=== PATIENT | female | born 1990 | race African-American/Black ===

== ENCOUNTER 2016-10-16 11:44 | Emergency (ER) | payer MEDICAID ==
[~2016-10-16] VITALS: Ht 165.1 cm; Wt 79.4 kg
[~2016-10-16 11:44] MED LIST: BENADRYL25 MG ORAL; NKM; PEPCID20 MG ORAL; PRENATABS RX T1 EACH PO; REGLAN5 MG ORAL
[2016-10-16 11:59] VITALS: BP 131/81
--- NOTE | 2016-10-16 12:29 | Emergency Room Report ---
History of Present Illness General Chief Complaint: Sore Throat Source: Patient Present Illness HPI 26-year-old female presents emergency department complaining of 8/10 in severity sore throat x5 days patient denies fevers reports intermittent chills patient states she is taking throat lozenges which did not bite relief. Patient denies ill contacts or recent travel patient denies abdominal pain rashes, neck pain or stiffness, headaches, or difficulty breathing. She states pain is exacerbated upon swallowing and has been progressive over the course of 5 days. Denies CP, Palpitations, LOC, AMS, dizziness, Changes in Vision, Sensation, paresthesias, or a sudden severe headache. Allergies: Coded Allergies: No Known Allergies (Unverified , 05/12/13) Patient History Past Medical History: see triage record Past Surgical History: none Pertinent Family History: none Now: No Reviewed Nursing Documentation: PMH: Agreed, PSxH: Agreed Nursing Documentation-PMH Past Medical History: No Stated History Review of Systems All Other Systems: negative except mentioned in HPI Physical Exam Vital Signs Date Time Temp Pulse Resp B/P Pulse Ox O2 Delivery O2 Flow Rate FiO2 10/16/16 11:59 99.0 91 18 131/81 100 Sp02 EP Interpretation: reviewed, normal General Appearance: no apparent distress, alert, GCS 15, non-toxic Head: normocephalic, atraumatic Eyes: bilateral eye PERRL, bilateral eye normal inspection ENT: hearing grossly normal, normal pharynx, no angioedema, normal voice, TMs + canals normal, uvula midline, tonsillar swelling - left tonsillar swelling, no palpable fluctuance, pharyngeal erythema, tonsillar exudate Neck: full range of motion, supple/symm/no masses Respiratory: lungs clear, normal breath sounds, speaking full sentences Cardiovascular #1: regular rate, rhythm, no edema Rectal: deferred Genitourinary: normal inspection, no CVA tenderness Musculoskeletal: back normal, gait/station normal, normal range of motion, non- tender Neurologic: alert, oriented x3, responsive, motor strength/tone normal, sensory intact, speech normal Psychiatric: judgement/insight normal, memory normal, mood/affect normal Skin: normal color, no rash, warm/dry, well hydrated Lymphatic: other - anterior cervical LAD bilateral Medical Decision Making PA Attestation Dr. Coy is my supervising Physician whom patient management has been discussed with. Diagnostic Impression: Primary Impression: Pharyngitis, acute Qualified Codes: J02.0 - Streptococcal pharyngitis ER Course 26-year-old female presents emergency department complaining of 8/10 in severity sore throat x5 days patient denies fevers reports intermittent chills patient states she is taking throat lozenges which did not bite relief. Patient denies ill contacts or recent travel patient denies abdominal pain rashes, neck pain or stiffness, headaches, or difficulty breathing. She states pain is exacerbated upon swallowing and has been progressive over the course of 5 days. Ddx considered but are not limited to: pharyngitis, strep, INFECTION CONTROL RN, ludwigs angina, URI Vital signs: are WNL, pt. is afebrile H&PE are most consistent with: pharyngitis presumed strep, suspicious for early INFECTION CONTROL RN due to unilateral tonsillar swelling. will treat prophylactically ORDERS: None required at this time as the diagnosis is clinical ED INTERVENTIONS: -8mg Decadron IM - Augmentin 875 PO -Tylenol PO - Pt is given strict follow up precautions to follow up with-in 48 hours with PCP to assess improvement, and to return to the ED with worsening or new symptoms. DISCHARGE: At this time pt. is stable for d/c to home. Will provide printed patient care instructions, and any necessary prescriptions. Care plan and follow up instructions have been discussed with the patient prior to discharge. Last Vital Signs Date Time Temp Pulse Resp B/P Pulse Ox O2 Delivery O2 Flow Rate FiO2 10/16/16 11:59 99.0 91 18 131/81 100 Disposition: HOME, SELF-CARE Condition: Stable Scripts Ibuprofen* (MOTRIN*) 400 Mg Tablet 400 MG ORAL THREE TIMES A DAY for 10 Days, #30 TAB 0 Refills Prov: Cindi Vega P.A. 10/16/16 Lidocaine HCl (Lidocaine HCl Viscous) 100 Ml Solution 15 ML PO QID for For Pain, #120 ML Prov: Cindi Vega P.AFransisca 10/16/16 Amoxicillin/Potassium Clav 875-125* (AUGMENTIN 875-125 TABLET*) 1 Each Tablet 1 TAB ORAL TWICE A DAY for 10 Days, #20 TAB Prov: Cindi Vega P.A. 10/16/16 Referrals: NOT CHOSEN [facility]/MD,REFERRING (PCP) Patient Instructions: Strep Throat, Tonsillitis Additional Instructions: Take medications as directed. Follow up with PCP in 48 HOURS Return sooner to ED if new symptoms occur, or current symptoms become worse. - Please note that this Emergency Department Report was dictated using [employer] maker technology software, occasionally this can lead to erroneous entry secondary to interpretation by the dictation equipment. Cindi Vega. Oct 16, 2016 12:29
[2016-10-16] MEDS ORDERED: Dexamethasone 4mg/ml vial IM ONE (12:30)
[2016-10-16] MEDS ORDERED: Augmentin 875mg Tab ORAL ONE (12:45)
[2016-10-16] MEDS ORDERED: IBUPROFEN400 MG ORAL (12:47)
[2016-10-16] MEDS ORDERED: LIDOCAINE VISCO20 ML PO (12:47)
[2016-10-16] MEDS ORDERED: AUGMENTIN 875-1 EAC1 ORAL (12:47)
[2016-10-16 13:21] VITALS: BP 131/81
== END 2016-10-16 13:23 | disposition home or self-care (01) ==
LOC: EMR 12:19
DX: J02.9 Acute pharyngitis, unspecified (principal)
CPT/HCPCS: 96372; 99284; J1100

== ENCOUNTER 2016-11-04 16:42 | Emergency (ER) | payer MEDICAID ==
[~2016-11-04] VITALS: Ht 165.1 cm; Wt 85.7 kg
[~2016-11-04 16:42] MED LIST changes: +AUGMENTIN 875-1 EAC1 ORAL; +IBUPROFEN400 MG ORAL; +LIDOCAINE VISCO20 ML PO
[2016-11-04] MEDS ORDERED: IBUPROFEN600 MG ORAL (17:12)
[2016-11-04 17:19] VITALS: BP 132/71
[2016-11-04] MEDS ORDERED: OMEPRAZOLE20 M2 ORAL (17:25)
[2016-11-04] MEDS ORDERED: AMOXICILLIN500 MG ORAL (17:25)
[2016-11-04] MEDS ORDERED: PREDNISONE20 MG ORAL (17:25)
[2016-11-04] MEDS ORDERED: PredniSONE 20mg tab ORAL ONE (17:30)
[2016-11-04 17:34] VITALS: BP 132/71
--- NOTE | 2016-11-04 21:25 | Emergency Room Report ---
History of Present Illness General Chief Complaint: Flu Like Symptoms Source: Patient Present Illness HPI The patient is a 26-year-old female presenting with sore throat, cough, and abdominal pain. The sore throat began 5 days prior. It is described as needed 10 dull ache to the back of the throat and is worse with swallowing. Does not radiate. She denies any recent travel or sick contacts. She does admit to subjective fever and chills. Abdominal pain described as 5/10 burning after eating only. Mid upper abdomen and chest. She denies any other symptoms such as N, V, neck pain/stiffness, rash, dysuria Allergies: Coded Allergies: No Known Allergies (Unverified , 05/12/13) Patient History Past Medical History: see triage record Pertinent Family History: none Last Menstrual Period: 2 months ago - implant contraceptive Now: No Reviewed Nursing Documentation: PMH: Agreed, PSxH: Agreed Nursing Documentation-PMH Past Medical History: No Stated History Review of Systems All Other Systems: negative except mentioned in HPI Physical Exam Vital Signs Date Time Temp Pulse Resp B/P Pulse Ox O2 Delivery O2 Flow Rate FiO2 11/04/16 16:54 100.2 103 16 135/75 99 Room Air Sp02 EP Interpretation: reviewed, normal General Appearance: no apparent distress, alert, GCS 15, non-toxic Head: normocephalic, atraumatic Eyes: bilateral eye PERRL, bilateral eye normal inspection ENT: hearing grossly normal, no angioedema, normal voice, uvula midline, tonsillar swelling, pharyngeal erythema, tonsillar exudate Neck: full range of motion, supple/symm/no masses Respiratory: chest non-tender, lungs clear, normal breath sounds, speaking full sentences Cardiovascular #1: regular rate, rhythm, no edema Gastrointestinal: normal inspection, soft, non-distended, no guarding, tenderness - epigastric Genitourinary: normal inspection, no CVA tenderness Musculoskeletal: back normal, gait/station normal, normal range of motion, non- tender Neurologic: alert, oriented x3, responsive, motor strength/tone normal, sensory intact, speech normal Psychiatric: judgement/insight normal, memory normal, mood/affect normal, no suicidal/homicidal ideation Skin: normal color, no rash, warm/dry, well hydrated Medical Decision Making PA Attestation Dr. Sandoval is my supervising physician. Patient management was discussed with my supervising physician Diagnostic Impression: Primary Impression: Pharyngitis, acute Qualified Codes: J02.9 - Acute pharyngitis, unspecified Additional Impression: GERD (gastroesophageal reflux disease) Qualified Codes: K21.9 - Gastro-esophageal reflux disease without esophagitis ER Course The patient is a 26-year-old female presenting with sore throat, cough, and abdominal pain Differential diagnosis include but not limited to pharyngitis, sinusitis, AOM, bronchitis, PNA Differential diagnoses considered but not limited to: Gastroenteritis, gastritis , GERD, pancreatitis, appendicitis Physical exam:Pt is febrile. No apparent distress HEENT exam: There is bilateral tonsillar edema, erythema, and exudate. Uvula midline. Moist mucous membranes. There is bilateral cervical lymphadenopathy. Lungs are clear to auscultation bilaterally Skin is warm and dry. No rash Abdomen is tender over the epigastric region only. She is given prednisone and motrin in the ER. The patient will be discharged home with a prescription for omeprazole, steroids , amoxicillin, and is given ER precautions. Patient will followup with primary care Last Vital Signs Date Time Temp Pulse Resp B/P Pulse Ox O2 Delivery O2 Flow Rate FiO2 11/04/16 17:34 99.9 97 15 132/71 99 Room Air Status: improved Disposition: HOME, SELF-CARE Condition: Improved Scripts Omeprazole (OMEPRAZOLE) 20 Mg Capsule. 20 MG ORAL DAILY, #30 CAP Prov: ELIZABETH CHAIDEZ.A. 11/04/16 Amoxicillin* (AMOXIL*) 500 Mg Capsule 500 MG ORAL Q12HR, #20 CAP Prov: ELIZABETH CHAIDEZ P.A. 11/04/16 Prednisone* (PREDNISONE*) 20 Mg Tablet 40 MG ORAL DAILY, #10 TAB Prov: ELIZABETH CHAIDEZ P.A. 11/04/16 Patient Instructions: Pharyngitis, Indigestion Additional Instructions: I discussed my findings with the patient. All questions and concerns have been answered. Treatment and medication compliance have been addressed. I advised the patient that they need to follow up with PMD in 3-5 days. Return to ED if pain remains or worsens, numbness or tingling occurs, new rash is noticed, fever is noticed, or if needed for any reason. Patient verbalized understanding of discharge instructions. ELIZABETH CHAIDEZ Nov 04, 2016 21:25
== END 2016-11-04 17:34 | disposition home or self-care (01) ==
LOC: EMR 17:15
DX: J02.9 Acute pharyngitis, unspecified (principal); K21.9 Gastro-esophageal reflux disease without esophagitis
CPT/HCPCS: 99284

== ENCOUNTER 2017-10-26 10:47 | Emergency (ER) | payer MEDICAID ==
[~2017-10-26] VITALS: Ht 165.1 cm; Wt 90.7 kg
[~2017-10-26 10:47] MED LIST changes: +AMOXICILLIN500 MG ORAL; +IBUPROFEN600 MG ORAL; +OMEPRAZOLE20 M2 ORAL; +PREDNISONE20 MG ORAL
[2017-10-26 10:59] VITALS: BP 135/72
[2017-10-26] MEDS ORDERED: DiphenhydrAMINE 50mg/ml Inj IVP ONE (11:15)
[2017-10-26] MEDS ORDERED: Metoclopramide 10mg/2ml Inj IVP ONE (11:15)
[2017-10-26 11:23] LABS: BASOPHILS % (AUTO) 1.8 % (0.0-2.0); EOSINOPHILS % (AUTO) 3.5 % (0.0-3.0); HEMOGLOBIN 14.8 G/DL (12.0-16.0); LYMPHOCYTES % (AUTO) 32.2 % (20.0-45.0); MEAN CORPUSCULAR VOLUME 87 FL (80-99); MONOCYTES % (AUTO) 8.9 % (1.0-10.0); NEUTROPHILS % (AUTO) 53.7 % (45.0-75.0); PLATELET COUNT 296 K/UL (150-450); RED BLOOD COUNT 5.16 M/UL (4.20-5.40); RED CELL DISTRIBUTION WIDTH 11.3 % (11.6-14.8); WHITE BLOOD COUNT 10.5 K/UL (4.8-10.8)
--- NOTE | 2017-10-26 11:44 | Emergency Room Report ---
History of Present Illness General Chief Complaint: Vomiting Source: Patient Present Illness HPI Patient presents with vomiting that started this morning. She's not sure if she ate something unusual. She denies any diarrhea. She can't keep anything down. She has some discomfort in her stomach and also in her throat from retching. She's not noticed any blood or taste any metallic flavor. She denies any fevers or chills. Her last period was September 26. She alleges to be on control. She's not sure if she is at this time as her period is late. She denies any dysuria. She's never had this problem before. In past, had h/o GERD. No headache, dizziness, weakness, cough, sore throat, rashes. She does have some stress at work. 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 [employer] Last Menstrual Period: 09/26/17 Reviewed Nursing Documentation: PMH: Agreed; PSxH: Agreed Nursing Documentation-PMH Past Medical History: No Stated History Review of Systems All Other Systems: negative except mentioned in HPI Physical Exam Vital Signs Date Time Temp Pulse Resp B/P (MAP) Pulse Ox O2 Delivery O2 Flow Rate FiO2 10/26/17 10:49 98.1 92 18 112/63 99 Room Air 98.1 Sp02 EP Interpretation: reviewed, normal General Appearance: well appearing, no apparent distress, GCS 15 Head: normocephalic Eyes: bilateral eye normal inspection, bilateral eye PERRL ENT: moist mucus membranes Neck: supple Respiratory: lungs clear, normal breath sounds Cardiovascular #1: regular rate, rhythm Cardiovascular #2: 2+ radial (R) Gastrointestinal: normal inspection, normal bowel sounds, non tender, no mass, non-distended, overweight Musculoskeletal: back normal, gait/station normal, normal range of motion Neurologic: alert, oriented x3, grossly normal Psychiatric: mood/affect normal Skin: normal inspection, warm/dry Medical Decision Making Diagnostic Impression: Primary Impression: Nausea & vomiting Qualified Codes: R11.2 - Nausea with vomiting, unspecified ER Course Patient presents with vomiting. Differential includes food poisoning, gastroenteritis, GERD, gastritis amongst others. She denies any specific pain aside from with the vomiting episodes. Evaluation will be with labs including test. The patient retreated with IV hydration, Reglan, Benadryl and Pepcid. Labs basically normal. (sodium 134, K 3.4, glu 118) The patient is improved with IV hydration, Reglan and Benadryl and Pepcid. She is tolerating oral intake right now. Her abdomen is benign. The patient is stable for outpatient observation and treatment. Laboratory Tests Test 10/26/17 11:10 10/26/17 11:30 White Blood Count 10.5 K/UL (4.8-10.8) Red Blood Count 5.16 M/UL (4.20-5.40) Hemoglobin 14.8 G/DL (12.0-16.0) Hematocrit 45.0 % (37.0-47.0) Mean Corpuscular Volume 87 FL (80-99) Mean Corpuscular Hemoglobin 28.7 PG (27.0-31.0) Mean Corpuscular Hemoglobin Concent 32.9 G/DL (32.0-36.0) Red Cell Distribution Width 11.3 % (11.6-14.8) L Platelet Count 296 K/UL (150-450) Mean Platelet Volume 8.6 FL (6.5-10.1) Neutrophils (%) (Auto) 53.7 % (45.0-75.0) Lymphocytes (%) (Auto) 32.2 % (20.0-45.0) Monocytes (%) (Auto) 8.9 % (1.0-10.0) Eosinophils (%) (Auto) 3.5 % (0.0-3.0) H Basophils (%) (Auto) 1.8 % (0.0-2.0) Sodium Level 135 MMOL/L (136-145) L Potassium Level 3.4 MMOL/L (3.5-5.1) L Chloride Level 102 MMOL/L (98-107) Carbon Dioxide Level 20 MMOL/L (21-32) L Anion Gap 13 mmol/L (5-15) Blood Urea Nitrogen 16 mg/dL (7-18) Creatinine 0.8 MG/DL (0.55-1.30) Estimate Glomerular Filtration Rate > 60 mL/min (>60) Glucose Level 118 MG/DL (74-106) H Calcium Level 9.1 MG/DL (8.5-10.1) Total Bilirubin 0.3 MG/DL (0.2-1.0) Aspartate Amino Transferase (AST) 18 U/L (15-37) Alanine Aminotransferase (ALT) 29 U/L (12-78) Alkaline Phosphatase 74 U/L (46-116) Total Protein 8.0 G/DL (6.4-8.2) Albumin 4.0 G/DL (3.4-5.0) Globulin 4.0 g/dL Albumin/Globulin Ratio 1.0 (1.0-2.7) Lipase 139 U/L (73-393) Human Chorionic Gonadotropin, Qual Negative Urine Color Yellow Urine Appearance Clear Urine pH 8 (4.5-8.0) Urine Specific [place] 1.015 (1.005-1.035) Urine Protein Negative (NEGATIVE) Urine Glucose (UA) Negative (NEGATIVE) Urine Ketones 2+ (NEGATIVE) H Urine Occult Blood 2+ (NEGATIVE) H Urine Nitrite Negative (NEGATIVE) Urine Bilirubin Negative (NEGATIVE) Urine Urobilinogen Normal MG/DL (0.0-1.0) Urine Leukocyte Esterase 1+ (NEGATIVE) H Urine RBC 2-4 /HPF (0 - 2) H Urine WBC 0-2 /HPF (0 - 2) Urine Squamous Epithelial Cells Few /LPF (NONE/OCC) Urine Bacteria Few /HPF (NONE) Last Vital Signs Date Time Temp Pulse Resp B/P (MAP) Pulse Ox O2 Delivery O2 Flow Rate FiO2 10/26/17 12:55 68 17 128/72 100 Room Air 10/26/17 12:54 98.1 98.1 Status: improved Disposition: HOME, SELF-CARE Condition: Improved Scripts Famotidine (PEPCID AC) 20 Mg Tablet 20 MG PO DAILY, #10 TAB Prov: Evan Suazo M.D. 10/26/17 Ondansetron Odt* (ZOFRAN ODT*) 4 Mg Tab.rapdis 4 MG BC EVERY 8 HOURS, #6 TAB 0 Refills Prov: Evan Suazo M.D. 10/26/17 Evan Suazo M.D. Oct 26, 2017 11:44
[2017-10-26 11:54] LABS: ANION GAP 13 mmol/L (5-15); BLOOD UREA NITROGEN 16 mg/dL (7-18); CALCIUM 9.1 MG/DL (8.5-10.1); CARBON DIOXIDE 20 MMOL/L (21-32); CHLORIDE 102 MMOL/L (98-107); CREATININE 0.8 MG/DL (0.55-1.30); POTASSIUM 3.4 MMOL/L (3.5-5.1); SODIUM 135 MMOL/L (136-145)
[2017-10-26 12:01] LABS: ALANINE AMINOTRANSFERASE 29 U/L (12-78); ALKALINE PHOSPHATASE 74 U/L (46-116); ASPARTATE AMINO TRANSFERASE 18 U/L (15-37); BILIRUBIN,TOTAL 0.3 MG/DL (0.2-1.0)
[2017-10-26 12:01] LABS: APPEARANCE,URINE CLEAR; BILIRUBIN, URINE NEGATIVE (NEGATIVE); GLUCOSE, URINE (UA) NEGATIVE (NEGATIVE); KETONES,URINE 2+ (NEGATIVE); LEUKOCYTE ESTERASE ,URINE 1+ (NEGATIVE); NITRITE,URINE NEGATIVE (NEGATIVE); PH,URINE 8 (4.5-8.0); PROTEIN,URINE NEGATIVE (NEGATIVE); UROBILINOGEN,URINE NORMAL MG/DL (0.0-1.0)
[2017-10-26 12:16] LABS: COLOR,URINE YELLOW
[2017-10-26] MEDS ORDERED: PEPCID AC20 M2 PO (12:38)
[2017-10-26] MEDS ORDERED: ONDANSETRON ODT4 MG BC (12:38)
[2017-10-26 12:55] VITALS: BP 128/72
== END 2017-10-26 12:54 | disposition home or self-care (01) ==
LOC: EMR 11:20
DX: R11.2 Nausea with vomiting, unspecified (principal); K21.9 Gastro-esophageal reflux disease without esophagitis
CPT/HCPCS: 36415; 80053; 81003; 83690; 84703; 85025; 96360; 96374; 96375; 99284; J1200; J2765; S0028

== ENCOUNTER 2019-01-03 11:37 | Emergency (ER) | payer BC, MEDICAID ==
[~2019-01-03] VITALS: Ht 165.1 cm; Wt 98.9 kg
[~2019-01-03 11:37] MED LIST changes: +ONDANSETRON ODT4 MG BC; +PEPCID AC20 M2 PO
[2019-01-03 11:41] VITALS: BP 141/83
--- NOTE | 2019-01-03 11:50 | NUR ---
ED Nurse Note: Pt walked in due to on and off headache x 3 days. Vomited once last friday. Denies head injury. AAO x4 and ambulates with steady gait.
--- NOTE | 2019-01-03 12:12 | Emergency Room Report ---
History of Present Illness General Chief Complaint: Headache Source: Patient Present Illness HPI Patient is a 28-year-old female presenting for headache. She does admit to a history of headaches and this feels similar. Pain is described as a 7 out of 10 dull ache to the left side of the head and does not radiate. Worse with movement. She has tried several days of Tylenol which has only mildly helped. Does admit to nausea 2 days prior denies vomiting. Last normal menstrual period was 12/30/18. She admits to recently stopping control She denies visual changes, Vomiting, neck pain or stiffness, fever, chills Allergies: Coded Allergies: No Known Allergies (Unverified , 05/12/13) Patient History Past Medical History: see triage record Past Surgical History: other Last Menstrual Period: 12/30/2018 Now: No Reviewed Nursing Documentation: PMH: Agreed; PSxH: Agreed Nursing Documentation-PMH Past Medical History: No Stated History Review of Systems All Other Systems: negative except mentioned in HPI Physical Exam Vital Signs Date Time Temp Pulse Resp B/P (MAP) Pulse Ox O2 Delivery O2 Flow Rate FiO2 01/03/19 11:41 98.4 81 20 141/83 (102) 98 Room Air Sp02 EP Interpretation: reviewed, normal General Appearance: no apparent distress, alert, GCS 15, non-toxic Head: normocephalic, atraumatic Eyes: bilateral eye normal inspection, bilateral eye PERRL Neck: full range of motion, supple, supple/symm/no masses Respiratory: chest non-tender, lungs clear, normal breath sounds, speaking full sentences Cardiovascular #1: regular rate, rhythm, no edema Genitourinary: normal inspection, no CVA tenderness Musculoskeletal: back normal, gait/station normal, normal range of motion, non- tender Neurologic: alert, oriented x3, responsive, motor strength/tone normal, sensory intact, speech normal Psychiatric: normal inspection, mood/affect normal Medical Decision Making PA Attestation Dr. Adler is my supervising physician. Patient management was discussed with my supervising physician Diagnostic Impression: Primary Impression: Headache Qualified Codes: R51 - Headache ER Course Patient is a 28-year-old female presenting for headache Differential diagnoses include but not limited to Migraine, tension headache, cluster MOONEY, dehydration, anxiety, meningitis, among others Vitals: afebrile. Stable NAD Head NC/AT. PERRL. EOMI. Neck soft and supple. RRR Lungs CTA bilat Patient is given IM Toradol, Benadryl, and Reglan. She states that she is feeling significantly better and would like to be discharged home. She was told to follow-up with primary doctor as soon as possible. ER precautions are given Laboratory Tests Test 01/03/19 12:15 Urine Color Pale yellow Urine Appearance Clear Urine pH 8 (4.5-8.0) Urine Specific [place] 1.010 (1.005-1.035) Urine Protein Negative (NEGATIVE) Urine Glucose (UA) Negative (NEGATIVE) Urine Ketones Negative (NEGATIVE) Urine Blood 2+ (NEGATIVE) H Urine Nitrite Negative (NEGATIVE) Urine Bilirubin Negative (NEGATIVE) Urine Urobilinogen Normal MG/DL (0.0-1.0) Urine Leukocyte Esterase 1+ (NEGATIVE) H Urine RBC 2-4 /HPF (0 - 2) H Urine WBC 2-4 /HPF (0 - 2) Urine Squamous Epithelial Cells Moderate /LPF (NONE/OCC) H Urine Bacteria Few /HPF (NONE) Urine HCG, Qualitative Negative (NEGATIVE) Lab Results Impression UA unremarkable. UP negative Last Vital Signs Date Time Temp Pulse Resp B/P (MAP) Pulse Ox O2 Delivery O2 Flow Rate FiO2 01/03/19 11:41 98.4 81 20 141/83 (102) 98 Room Air Status: improved Disposition: HOME, SELF-CARE Condition: Improved Scripts Metoclopramide Hcl* (REGLAN*) 10 Mg Tablet 10 MG ORAL THREE TIMES A DAY, #15 TAB Prov: TERANGELIANEILEENY P.A. 01/03/19 Diphenhydramine Hcl* (BENADRYL*) 25 Mg Capsule 25 MG ORAL Q6H PRN for For Pain, #15 CAP Prov: TERZIAN,ELIZABETH P.A. 01/03/19 Ibuprofen* (MOTRIN*) 600 Mg Tablet 600 MG ORAL Q8H PRN for For Pain, #30 TAB 0 Refills Prov: TERANGELIANELIZABETH P.A. 01/03/19 Referrals: NOT CHOSEN MICHI/,REFERRING (PCP) ELIZABETH CHAIDEZ.AFransisca Jan 03, 2019 12:12
[2019-01-03 12:36] LABS: APPEARANCE,URINE CLEAR; BILIRUBIN, URINE NEGATIVE (NEGATIVE); COLOR,URINE PALE YELLOW; GLUCOSE, URINE (UA) NEGATIVE (NEGATIVE); KETONES,URINE NEGATIVE (NEGATIVE); LEUKOCYTE ESTERASE ,URINE 1+ (NEGATIVE); NITRITE,URINE NEGATIVE (NEGATIVE); PH,URINE 8 (4.5-8.0); PROTEIN,URINE NEGATIVE (NEGATIVE); UROBILINOGEN,URINE NORMAL MG/DL (0.0-1.0)
[2019-01-03] MEDS ORDERED: Ketorolac 60mg Inj IM ONE (12:45)
[2019-01-03] MEDS ORDERED: DiphenhydrAMINE 50mg/ml Inj IM ONE (12:45)
[2019-01-03] MEDS ORDERED: Metoclopramide 10mg/2ml Inj IM ONE (12:45)
[2019-01-03] MEDS ORDERED: IBUPROFEN600 MG ORAL (13:22)
[2019-01-03] MEDS ORDERED: REGLAN10 MG ORAL (13:22)
[2019-01-03] MEDS ORDERED: BENADRYL25 MG ORAL (13:22)
[2019-01-03 13:26] VITALS: BP 138/76
--- NOTE | 2019-01-03 13:26 | NUR ---
ER DISCHARGE NOTE: Patient is cleared to be discharged per PA, pt is aox4, on room air, with stable vital signs. pt was given dc and prescription instructions, pt was able to verbalize understanding, pt id band removed. pt is able to ambulate with steady gait. pt took all belongings.
== END 2019-01-03 13:26 | disposition home or self-care (01) ==
LOC: EMR 12:07
DX: R51 Headache (principal); R11.0 Nausea
CPT/HCPCS: 81003; 81025; 96372; 99283; J1200; J2765

== ENCOUNTER 2019-03-12 13:02 | Emergency (ER) | payer BC, MEDICAID ==
[~2019-03-12] VITALS: Ht 165.1 cm; Wt 98.9 kg
[~2019-03-12 13:02] MED LIST changes: +REGLAN10 MG ORAL
[2019-03-12] MEDS ORDERED: IMITREX50 MG ORAL (13:11)
[2019-03-12 13:13] VITALS: BP 144/87
--- NOTE | 2019-03-12 13:15 | NUR ---
ED Nurse Note: Pt walked in to ER from home due to headache 11/04 for a week. pt aao x4 and ambulatory. skin clean and intact. calm and cooperative. no acute distress noted at this moment.
[2019-03-12 13:43] LABS: APPEARANCE,URINE CLEAR; BILIRUBIN, URINE NEGATIVE (NEGATIVE); COLOR,URINE PALE YELLOW; GLUCOSE, URINE (UA) NEGATIVE (NEGATIVE); KETONES,URINE NEGATIVE (NEGATIVE); LEUKOCYTE ESTERASE ,URINE 1+ (NEGATIVE); NITRITE,URINE NEGATIVE (NEGATIVE); PH,URINE 7 (4.5-8.0); PROTEIN,URINE NEGATIVE (NEGATIVE); UROBILINOGEN,URINE NORMAL MG/DL (0.0-1.0)
--- NOTE | 2019-03-12 14:13 | Emergency Room Report ---
History of Present Illness General Chief Complaint: Headache Source: Patient Present Illness HPI 28-year-old female with no significant past medical history here complaining of 1 week of frontal headache and feeling pressure behind her eyes as well as pain radiation to her neck and her right shoulder. Patient denies any fall or injury. Denies nausea and vomiting at this time. Patient has been at [facility], [place] with similar symptoms before and has been diagnosed with tension type headache. Patient went to her primary care physician few days ago and was prescribed sumatriptan for possible migraine headache however reports that sumatriptan is not helping. Patient reports that she is under a lot of anxiety. Denies suicidal homicidal ideation. Denies chest pain, shortness of breath, blurry vision, palpitation, and other associated symptoms. Denies wearing glasses or contact lenses. Also complains of several months of cramping in the pelvic area especially in the right side upon getting her. Patient denies any pain in that area right now. Denies urinary frequency and urgency. Reports that she is trying to get . Has not taken any medication for symptom relief. Patient sitting comfortably with stable vital signs. No motor or neurological or sensory deficits noted. Patient speaking in full sentences. Denies neck stiffness, photophobia, and fever. Denies recent URI symptoms. Last menstrual period was 1 week ago and regular. Allergies: Coded Allergies: No Known Allergies (Unverified , 05/12/13) Patient History Past Medical History: see triage record Past Surgical History: unable to obtain Pertinent Family History: none Last Menstrual Period: 03/04/19 Now: No Immunizations: UTD Reviewed Nursing Documentation: PMH: Agreed; PSxH: Agreed Nursing Documentation-PMH Past Medical History: No Stated History Review of Systems All Other Systems: negative except mentioned in HPI Physical Exam Vital Signs Date Time Temp Pulse Resp B/P (MAP) Pulse Ox O2 Delivery O2 Flow Rate FiO2 03/12/19 13:07 98.8 73 14 144/87 (106) 98 Room Air Sp02 EP Interpretation: reviewed, normal General Appearance: no apparent distress, alert, GCS 15, non-toxic Head: normocephalic, atraumatic Eyes: bilateral eye normal inspection, bilateral eye PERRL, bilateral eye other - 20/30 vision both eyes ENT: normal ENT inspection, hearing grossly normal, normal pharynx, no angioedema, normal voice, TMs + canals normal, uvula midline, moist mucus membranes, dry mucus membranes, nasal congestion Neck: normal inspection, full range of motion, supple, thyroid normal, no meningismus, no bony tend Respiratory: chest non-tender, lungs clear, normal breath sounds, no rhonchi, no respiratory distress, no retraction, no accessory muscle use, no wheezing, speaking full sentences Cardiovascular #1: normal inspection, normal peripheral pulses, regular rate, rhythm, no edema, no gallop, no JVD, no murmur, normal capillary refill Cardiovascular #2: 2+ carotid (R), 2+ carotid (L), 2+ radial (R), 2+ radial (L) Gastrointestinal: normal bowel sounds, non tender, soft, non-distended, no guarding, no rebound Rectal: deferred Genitourinary: no CVA tenderness Musculoskeletal: back normal, gait/station normal, normal range of motion, non- tender Neurologic: alert, oriented x3, responsive, motor strength/tone normal, sensory intact, speech normal Psychiatric: judgement/insight normal, memory normal, mood/affect normal, no suicidal/homicidal ideation Skin: no rash Lymphatic: normal inspection, no adenopathy Medical Decision Making PA Attestation All my diagnosis and treatment plans were reviewed ad discussed with my supervising physician Dr. Sandoval Diagnostic Impression: Primary Impression: Tension headache Additional Impression: Pelvic pain ER Course 28-year-old female with no significant past medical history here complaining of 1 week of frontal headache and feeling pressure behind her eyes as well as pain radiation to her neck and her right shoulder. Patient denies any fall or injury. Denies nausea and vomiting at this time. Patient has been at [facility] [place] with similar symptoms before and has been diagnosed with tension type headache. Patient went to her primary care physician few days ago and was prescribed sumatriptan for possible migraine headache however reports that sumatriptan is not helping. Patient reports that she is under a lot of anxiety. Denies suicidal homicidal ideation. Denies chest pain, shortness of breath, blurry vision, palpitation, and other associated symptoms. Denies wearing glasses or contact lenses. Also complains of several months of cramping in the pelvic area especially in the right side upon getting her. Patient denies any pain in that area right now. Denies urinary frequency and urgency. Reports that she is trying to get . Has not taken any medication for symptom relief. Patient sitting comfortably with stable vital signs. No motor or neurological or sensory deficits noted. Patient speaking in full sentences. Denies neck stiffness, photophobia, and fever. Denies recent URI symptoms. Last menstrual period was 1 week ago and regular. Ddx considered but are not limited to: Migraine headache with aura, migraine headache without aura, tension headache, cluster headache, TBI, subarachnoid hemorrhage Vital signs: are WNL, pt. is afebrile H&PE are most consistent with: Tension type headache, pelvic pain ORDERS: UA, urine test, Excedrin, Zofran, Benadryl ER intervention: None DISCHARGE: At this time pt. is stable for d/c to home. Will provide printed patient care instructions, and any necessary prescriptions. Care plan and follow up instructions have been discussed with the patient prior to discharge. Follow-up with primary care provider for referral to pharmaceutical operator for possibility of ovarian cyst versus fibroids since he did not have any pain at this time and monitor actively bleeding no further imaging is needed. Also have your primary care physician send you to neurologist to have further investigation of the recurrent headaches. If worsening symptoms return to emergency room. Last Vital Signs Date Time Temp Pulse Resp B/P (MAP) Pulse Ox O2 Delivery O2 Flow Rate FiO2 03/12/19 13:13 98.8 88 14 144/87 98 Room Air Disposition: HOME, SELF-CARE Condition: Stable Scripts Diphenhydramine HCl (Benadryl) 25 Mg Capsule 25 MG PO BID, #20 CAP Prov: Elise Franz 03/12/19 Ondansetron (Zofran) 4 Mg Tablet 4 MG ORAL Q6H PRN for Nausea & Vomiting, #10 TAB Prov: Elise Franz 03/12/19 Aspirin/Acetaminophen/Caffeine (EXCEDRIN EXTRA STRENGTH CAPLET) 1 Each Tablet 1 EACH PO BID, #20 TAB Prov: Elise Franz 03/12/19 Patient Instructions: Pelvic Pain, Female, [id number], Tension Headache Additional Instructions: take medication as directed. see primary dr for assessment of headache, and also ultrasound of pelvis to rule out fibroids/ovarian cysts. at this time you are asymptomatic, return to ER if worsening symptoms. Elise Franz Mar 12, 2019 14:13
[2019-03-12] MEDS ORDERED: BENADRYL25 M3 PO (14:14)
[2019-03-12] MEDS ORDERED: ZOFRAN4 M1 ORAL (14:14)
[2019-03-12] MEDS ORDERED: EXCEDRIN EXTRA1 EAC1 PO (14:14)
[2019-03-12 14:37] VITALS: BP 122/87
== END 2019-03-12 14:38 | disposition home or self-care (01) ==
LOC: EMR 14:15
DX: G44.209 Tension-type headache, unspecified, not intractable (principal); R10.2 Pelvic and perineal pain
CPT/HCPCS: 81001; 81025; 99283

== ENCOUNTER 2019-08-29 21:27 | Emergency (ER) | payer BC, MEDICAID ==
[~2019-08-29] VITALS: Ht 162.6 cm; Wt 93.4 kg
[2019-08-29 21:22] VITALS: BP 135/76
--- NOTE | 2019-08-29 21:22 | NUR ---
ED Nurse Note: pt walked in to ED for C/O sore throat since last night. denies any cough. pt also C/O pain to vaginal and pubic bone area. reports bleeding after intercourse
[~2019-08-29 21:27] MED LIST changes: +BENADRYL25 M3 PO; +EXCEDRIN EXTRA1 EAC1 PO; +IMITREX50 MG ORAL; +ZOFRAN4 M1 ORAL
--- NOTE | 2019-08-29 22:02 | NUR ---
ED Nurse Note: Report given to Isidra Núñez RN. endorsed plan of care.
--- NOTE | 2019-08-29 22:10 | NUR ---
ED Nurse Note: RECIEVED PT FROM OUTSIDE TO RESUME CARE, PT HERE FOR VAGINAL EXAM AND SORE THROAT, PT IS AWAKE AND ALERT, AMBULATORY, URINE SAMPLE COLLECTED, WILL RESUME CARE ORDERED AND CLOSELY MONITOR FOR ANY CHANGES OR INCREASED DISTRESS.
[2019-08-29 22:38] LABS: APPEARANCE,URINE CLEAR; BILIRUBIN, URINE NEGATIVE (NEGATIVE); COLOR,URINE PALE YELLOW; GLUCOSE, URINE (UA) NEGATIVE (NEGATIVE); KETONES,URINE NEGATIVE (NEGATIVE); LEUKOCYTE ESTERASE ,URINE NEGATIVE (NEGATIVE); NITRITE,URINE NEGATIVE (NEGATIVE); PH,URINE 8 (4.5-8.0); PROTEIN,URINE NEGATIVE (NEGATIVE); UROBILINOGEN,URINE NORMAL MG/DL (0.0-1.0)
--- NOTE | 2019-08-29 22:55 | Emergency Room Report ---
History of Present Illness General Chief Complaint: Sore Throat Source: Patient Present Illness HPI Disclaimer: Please note that this report is being documented using [employer] technology. This can lead to erroneous entry secondary to incorrect interpretation by the dictating instrument. HPI: 29-year-old female no reported past medical history presented with sore throat, nasal congestion, body aches, and suprapubic pain. Suprapubic pain is been present on and off for 3 months. She states it hurts more when she holds her urine. Does report urinary frequency. She recently started her menstrual cycle about 1 week ago. She is currently about to end it. She denies any nausea vomiting or diarrhea. She denies any fever. She denies any cough or shortness of breath or sick contacts. PMH: Patient denies any past medical history PSH: Reviewed Social Hx: Denies any smoking drinking or illicit drug use Allergies: Coded Allergies: No Known Allergies (Unverified , 05/12/13) COVID-19 Screening Contact w/high risk pt: No Recent Travel to affected area: No Experienced COVID-19 symptoms?: Yes COVID-19 symptoms experienced: Flu-Like Symptoms Patient History Last Menstrual Period: na Reviewed Nursing Documentation: PMH: Agreed; PSxH: Agreed Nursing Documentation-PMH Past Medical History: No Stated History Review of Systems All Other Systems: negative except mentioned in HPI Physical Exam Vital Signs Date Time Temp Pulse Resp B/P (MAP) Pulse Ox O2 Delivery O2 Flow Rate FiO2 08/29/19 21:20 98.2 96 18 135/76 (95) 98 Room Air Sp02 EP Interpretation: reviewed, normal General Appearance: well appearing, no apparent distress Head: normocephalic, atraumatic Eyes: bilateral eye PERRL, bilateral eye EOMI ENT: hearing grossly normal, moist mucus membranes, pharyngeal erythema, other - No exudates noted Neck: full range of motion, supple Respiratory: lungs clear, normal breath sounds, no rhonchi, no respiratory distress, no retraction, no wheezing Cardiovascular #1: normal peripheral pulses, regular rate, rhythm, no murmur Gastrointestinal: non tender, soft, non-distended, no guarding Neurologic: alert, oriented x3, no focal defects Skin: normal color, warm/dry Medical Decision Making Diagnostic Impression: Primary Impression: Viral syndrome Additional Impression: Pelvic pain ER Course MDM: Patient presented for multiple complaints including flulike symptoms and pelvic pain. She had a normal exam. Vital signs stable. No respiratory distress noted. Afebrile in the ER. Abdominal exam benign. Urinalysis was sent and was consistent with some blood in the urine. I suspect secondary to her menstrual cycle. Urine negative. As patient does have flulike symptoms. Will treat for suspected coronavirus versus other viral illness. She does not require admission at this time. She was recommended for symptomatic treatment. I did provide outpatient resources for outpatient testing if patient wishes to be tested. She was given return precautions. She was stable for discharge. Low suspicion for PID or other emergent pathology at this time. Patient does currently have referral to OB for her pelvic pain. Labs -urinalysis with blood, negative On reevaluation: Patient in no acute distress Plan-discharge home with symptomatic treatment follow-up with PMD and OB. Commend home isolation. Last Vital Signs Date Time Temp Pulse Resp B/P (MAP) Pulse Ox O2 Delivery O2 Flow Rate FiO2 08/29/19 21:22 98.2 92 18 135/76 98 Room Air Disposition: HOME, SELF-CARE Condition: Stable Scripts Ibuprofen* (MOTRIN*) 600 Mg Tablet 600 MG ORAL Q6H PRN for For Pain, #30 TAB 0 Refills Prov: Vasiliy Cortes M.D. 08/29/19 Referrals: NON PHYSICIAN (PCP) Vasiliy Cortes M.D. August 29, 2019 22:55
[2019-08-29] MEDS ORDERED: IBUPROFEN600 M1 ORAL (23:00)
[2019-08-29 23:05] VITALS: BP 135/76
--- NOTE | 2019-08-29 23:05 | NUR ---
ER DISCHARGE NOTE: Patient is cleared to be discharged per ERMD, pt is aox4, on room air, with stable vital signs. pt was given dc and prescription instructions, pt was able to verbalize understanding, pt id band removed without complications. pt is able to ambulate with steady gait. pt took all belongings.
== END 2019-08-29 23:16 | disposition home or self-care (01) ==
LOC: EDBD 21:27 → EMR 22:00
DX: B34.9 Viral infection, unspecified (principal); R10.2 Pelvic and perineal pain
CPT/HCPCS: 81003; 81025; 99282

== ENCOUNTER 2020-05-29 03:04 | Emergency (ER) | payer BC ==
[~2020-05-29] VITALS: Ht 162.6 cm; Wt 103.0 kg
[~2020-05-29 03:04] MED LIST changes: +IBUPROFEN600 M1 ORAL
[2020-05-29 03:17] VITALS: BP 123/76
--- NOTE | 2020-05-29 03:35 | NUR ---
ED Nurse Note: Patient came to the ED complaining of right sided low back pain, 8/10 for the past 10 denies any trauma, denies burning with urination, denies any fever. Patient reports being 19 weeks and 5 days . she follows up with OB regularly, next visit tomorrow. Denies any spotting.
[2020-05-29] MEDS ORDERED: HYDROcodone/Acetamin 5/325 tab ORAL ONE (03:45)
--- NOTE | 2020-05-29 03:45 | Emergency Room Report ---
History of Present Illness General Chief Complaint: Complications Source: Patient Present Illness HPI 29-year-old female who is almost 20 weeks . She presents with chief plaint of lower back pain. Onset for a day or 2. Pain is to the lower back and radiating anteriorly to her lower pelvic area. No trauma. Pain is 8 out of 10. No relief with Tylenol. No incontinence of bowel or urine. No urinary frequency or urgency. No bleeding. Allergies: Coded Allergies: No Known Allergies (Unverified , 05/12/13) COVID-19 Screening Contact w/high risk pt: No Recent Travel to affected area: No Experienced COVID-19 symptoms?: No COVID-19 symptoms experienced: Flu-Like Symptoms COVID-19 Testing performed LITIGATION CLAIM REPRESENTATIVE: No Patient History Past Medical History: see triage record, old chart reviewed Past Surgical History: none Pertinent Family History: none Social History: Denies: smoking Now: No Immunizations: other Reviewed Nursing Documentation: PMH: Agreed; PSxH: Agreed Review of Systems Eye: Denies: eye pain, blurred vision ENT: Denies: ear pain, nose congestion, throat swelling Respiratory: Denies: cough, shortness of breath Cardiovascular: Denies: chest pain, palpitations Gastrointestinal: Denies: abdominal pain, diarrhea, nausea, vomiting Musculoskeletal: Reports: back pain; Denies: joint pain Skin: Denies: rash Neurological: Denies: headache, numbness Endocrine: Denies: increased thirst, increased urine Hematologic/Lymphatic: Denies: easy bruising All Other Systems: negative except mentioned in HPI Physical Exam Vital Signs Date Time Temp Pulse Resp B/P (MAP) Pulse Ox O2 Delivery O2 Flow Rate FiO2 05/29/20 03:17 97.5 79 20 123/76 (92) 98 Room Air Vitals normal Sp02 EP Interpretation: reviewed, normal General Appearance: well appearing, no apparent distress, alert Head: normocephalic, atraumatic Eyes: bilateral eye PERRL, bilateral eye EOMI ENT: hearing grossly normal, normal pharynx Neck: full range of motion, supple, no meningismus Respiratory: chest non-tender, lungs clear, normal breath sounds Cardiovascular #1: regular rate, rhythm, no murmur Gastrointestinal: normal bowel sounds, non tender, no mass, no organomegaly, no bruit, non-distended, other - gravid Musculoskeletal: back normal, normal range of motion, gait/station normal Psychiatric: mood/affect normal Medical Decision Making Diagnostic Impression: Primary Impression: Low back pain Qualified Codes: M54.5 - Low back pain ER Course This patient presents with low back pain. This may be secondary to her . Could be round ligament pain. No evidence of infection. My bedside ultrasound show live IUP with good movement and heart rate. Last Vital Signs Date Time Temp Pulse Resp B/P (MAP) Pulse Ox O2 Delivery O2 Flow Rate FiO2 05/29/20 03:17 97.5 79 20 123/76 (92) 98 Room Air Status: improved Disposition: HOME, SELF-CARE Condition: Stable Scripts Acetaminophen With Codeine (T#3) (TYLENOL #3 TAB*) Y Tab 2 TAB ORAL Q6H PRN for For Pain, #20 TAB Prov: Chidi Ruiz MD 05/29/20 Referrals: NON PHYSICIAN (PCP) Additional Instructions: Follow-up with your doctor in 7 days. Return if symptoms worsen. Chidi Ruiz MD May 29, 2020 03:45
[2020-05-29 03:55] LABS: APPEARANCE,URINE CLEAR; BILIRUBIN, URINE NEGATIVE (NEGATIVE); COLOR,URINE PALE YELLOW; GLUCOSE, URINE (UA) NEGATIVE (NEGATIVE); KETONES,URINE NEGATIVE (NEGATIVE); LEUKOCYTE ESTERASE ,URINE NEGATIVE (NEGATIVE); NITRITE,URINE NEGATIVE (NEGATIVE); PH,URINE 7 (4.5-8.0); PROTEIN,URINE NEGATIVE (NEGATIVE); UROBILINOGEN,URINE NORMAL MG/DL (0.0-1.0)
[2020-05-29] MEDS ORDERED: ACETAMINOPHEN-1 EAC1 ORAL (04:00)
--- NOTE | 2020-05-29 04:10 | NUR ---
ER DISCHARGE NOTE: Patient is cleared to be discharged per ERMD, pt is aox4, on room air, with stable vital signs. pt was given dc and prescription instructions, pt was able to verbalize understanding, pt id band removed pt is able to ambulate with steady gait. pt took all belongings.
== END 2020-05-29 04:30 | disposition home or self-care (01) ==
LOC: EMR 03:33
DX: M54.5 Low back pain (principal)
CPT/HCPCS: 81003; 99283